=== PATIENT | female | born 1965 | race Hispanic/Latino ===

== ENCOUNTER → 2024-12-05 | Outpatient (REF) | payer OTHER | LOC: US 10:40 | PROVIDERS: ATTEND Nurse Practitioner Family | DX: R10.9 Unspecified abdominal pain (principal) | CPT/HCPCS: 76700; 76856 ==

== ENCOUNTER → 2025-01-20 | Day surgery (SDC) | payer OTHER ==
[~2025-01-20] MED LIST: CETIRIZINE HCL10 MG PO; DILANTIN50 MG PO; FAMOTIDINE20 MG PO; LIDOCAINE HCL 2% LOCAL INJ 5 ML SDV VIAL INJ ONE; LOSARTAN POTASS25 MG PO; MAG-OXIDE400 MG PO; POLYETHYLENE GL17 GM PO; PROPOFOL IV EMULSION 10 MG/ML 20 ML VIAL ONE
[2025-01-20] MEDS: LACTATED RINGER'S 1,000 ML ONE (12:05)
[2025-01-20 14:04] VITALS: TEMP 97.2
[2025-01-20 14:25] VITALS: BP 143/78; PULSE 78; RESP 18; O2SAT 99
== END | disposition home or self-care (01) ==
LOC: OR 11:35
PROVIDERS: ATTEND Internal Medicine Gastroenterology
DX: Z12.11 Encounter for screening for malignant neoplasm of colon (principal); K63.89 Other specified diseases of intestine; K64.8 Other hemorrhoids; K59.00 Constipation, unspecified; Z98.0 Intestinal bypass and anastomosis status; Z90.49 Acquired absence of other specified parts of digestive tract; K76.0 Fatty (change of) liver, not elsewhere classified; K75.9 Inflammatory liver disease, unspecified; I10 Essential (primary) hypertension; G83.9 Paralytic syndrome, unspecified; G40.909 Epilepsy, unspecified, not intractable, without status epilepticus; N39.0 Urinary tract infection, site not specified; R93.89 Abnormal findings on diagnostic imaging of other specified body structures; Z74.01 Bed confinement status; Z01.810 Encounter for preprocedural cardiovascular examination; Z79.899 Other long term (current) drug therapy; Z87.820 Personal history of traumatic brain injury
CPT/HCPCS: 45378; 93005; J2003; J2704; J7121